=== PATIENT | male | born 1995 | race Caucasian/White ===

== ENCOUNTER 2019-12-03 12:26 | Outpatient (CLI) | payer OTHER ==
--- NOTE | 2019-12-03 13:20 | RAD ---
CHEST 2 VIEWS: Date: 12/03/2019 HISTORY: History of COVID pneumonia 3 months ago. COMPARISON: 09/10/2013. FINDINGS: Heart size is normal. The lungs are clear. IMPRESSION: No acute intrathoracic disease. No evidence for pneumonia. POS: [facility]
== END 2019-12-03 12:27 | disposition home or self-care (01) ==
LOC: SCSRAD 12:26
PROVIDERS: ATTEND Family Medicine
DX: R06.02 Shortness of breath (principal)
CPT/HCPCS: 71046

== ENCOUNTER 2022-01-13 20:55 | Emergency (ER) | payer BC ==
[2022-01-13] MEDS ORDERED: HYDROcodone/Acetaminophen 10/325 mg Tablet ONE (21:23)
[2022-01-13] MEDS ORDERED: Ondansetron PF 4 MG/2 ML Vial ONE (21:23)
[2022-01-13 21:37] LABS: Bilirubin Negative (Negative); Blood, Urine Negative (Negative); Clarity Clear (Clear); Glucose, Urine (Dipstick) Normal (Negative); Ketone, Urine Negative (Negative); Leukocyte Negative Leu/uL (Negative); Nitrite Negative (Negative); Protein, Urine (Dipstick) 20 mg/dL (Neg-Trace); Specific Gravity, Urine 1.033 (1.002-1.036); pH, Urine 6.5 (5.0-9.0)
[2022-01-13] MEDS ORDERED: Ondansetron ODT 4 MG TAB ONE (21:37)
== END 2022-01-13 23:23 | disposition home or self-care (01) ==
LOC: ERS 20:55
DX: N43.3 Hydrocele, unspecified (principal); N50.812 Left testicular pain; Z87.891 Personal history of nicotine dependence
CPT/HCPCS: 76870; 81003; 93976; J2405; Q0162